=== PATIENT | male | born 1940 | race Caucasian/White ===

== ENCOUNTER 2019-09-26 14:39 | Emergency (ER) | payer OTHER ==
[~2019-09-26] VITALS: Ht 177.8 cm; Wt 99.9 kg
[~2019-09-26 14:39] MED LIST: ACET-1600 PO; ALBU0.63 NEB; AMLO10TA8 PO; B CO1TAB14 PO; BENZ200C48 PO; BUPR150T13 PO; DIGO250T3 PO; DOCU100T6 PO; FINA5TAB4 PO; FURO-93 PO; LEVO50TA PO; LEVO750T26 PO; LISI40TA PO; LORA-247 PO; METO-93 PO; METO25TA91 PO; OXCA150T18 PO; POTA20TA14 PO; PRED20TA PO; RIVA20TA PO; SIMV80TA18 PO; TAMS0.4C2 PO
[2019-09-26 14:45] VITALS: BP 95/61
--- NOTE | 2019-09-26 15:25 | NUR ---
XRAY AT BEDSIDE. PT RESTING COMFORTABLY ON GURNEY. NADN.
--- NOTE | 2019-09-26 15:51 | NUR ---
ALL RESULSTS ARE BACK AT THIS TIME. CHART UP FOR RECHECK.
== END 2019-09-26 16:28 | disposition home or self-care (01) ==
LOC: ED 15:08
DX: R05 Cough (principal); R06.02 Shortness of breath; R94.31 Abnormal electrocardiogram [ECG] [EKG]; I11.0 Hypertensive heart disease with heart failure; I50.9 Heart failure, unspecified; E03.9 Hypothyroidism, unspecified; E11.9 Type 2 diabetes mellitus without complications
CPT/HCPCS: 71045; 93005; 99283

== ENCOUNTER 2019-11-13 17:10 | Emergency (ER) | payer OTHER ==
[~2019-11-13] VITALS: Ht 177.8 cm; Wt 103.1 kg
[~2019-11-13 17:10] MED LIST changes: +METH4TAB2 PO
--- NOTE | 2019-11-13 17:53 | NUR ---
PT HAS CO 7 LB WEIGHT GAIN IN 2 DAYS, W BILATERAL 2+ PITTING EDEMA. NEW ONSET OF WHEEZING. DENIES SOB OR CP. PT NOT IN RESP DISTRESS. GOLD BLOWER APPLIED. VSS.
[2019-11-13 18:24] LABS: BASOPHILS # (AUTO) 0.05 x10^3/uL (0-0.1); BASOPHILS % (AUTO) 1 % (0-1); EOSINOPHILS # (AUTO) 0.15 x10^3/uL (0-0.4); EOSINOPHILS % (AUTO) 2 % (1-7); LYMPHOCYTES # (AUTO) 1.02 x10^3/uL (1-3.4); LYMPHOCYTES % (AUTO) 13 % (22-44); MD NO; MEAN CORPUSCULAR HEMOGLOBIN 31.4 pg (27.5-34.5); MEAN CORPUSCULAR HGB CONC 33.1 g/dL (33.2-36.2); MEAN CORPUSCULAR VOLUME 94.9 fL (81-97); MEAN PLATELET VOLUME 8.5 fL (7.4-10.4); MONOCYTES # (AUTO) 0.57 x10^3/uL (0.2-0.8); MONOCYTES % (AUTO) 7 % (2-9); NEUTROPHILS # (AUTO) 6.34 x10^3/uL (1.8-6.8); NEUTROPHILS % (AUTO) 78 % (42-75); PLATELET COUNT 336 x10^3/uL (130-400); RED BLOOD COUNT 3.97 x10^6/uL (4.38-5.82); RED CELL DISTRIBUTION WIDTH 15.7 % (9.4-14.8)
[2019-11-13 18:30] LABS: ALBUMIN 3.4 g/dL (3.4-5.0); ANION GAP 7 mmol/L (5-15); CALCIUM 8.7 mg/dL (8.5-10.1); CHLORIDE 104 mmol/L (98-107)
--- NOTE | 2019-11-13 18:30 | NUR ---
PT AT BEDSIDE. LABS PENDING.
[2019-11-13 18:35] LABS: ALANINE AMINOTRANSFERASE 28 U/L (12-78); ALKALINE PHOSPHATASE 86 U/L (45-117); BILIRUBIN,TOTAL 0.6 mg/dL (0.2-1.0); CREATININE 1.36 mg/dL (0.7-1.3); TOTAL PROTEIN 6.8 g/dL (6.4-8.2)
--- NOTE | 2019-11-13 18:50 | NUR ---
REPORT TO CHEST PAIN
--- NOTE | 2019-11-13 19:00 | NUR ---
REPORT FROM ALYSA MCQUEEN. PT SITTING UP IN [facility], AWAKE/ALERT, NAD NOTED. SO AT BEDSIDE. PT REQUESTING DC. CHART UP FOR RECHECK. PT/SO UPDATED TO POC AND DEMONSTRATES UNDERSTANDING.
--- NOTE | 2019-11-13 19:08 | NUR ---
Note undone in EDM - 11/13/19 at 1913 by NICOLASA REPORT FROM ALYSA MATTHEWS. PT RESTING IN [facility], AWAKE/ALERT/TALKATIVE WITH EASE. NAD NOTED. PT REPORTS "45-50 CHEST PAIN", ONSET THIS AM. +NAUSEA. DENIES PRODUCTIVE COUGH/FEVER/LE EDEMA OR PAIN. IV ESTABLISHED, LABS DRAWN. PT MEDICATED PER EMAR FOR PAIN. PT REFUSING MORPHINE AT THIS TIME, "MY PAIN ISN'T THAT BAD, I WILL LET YOU KNOW IF IT GETS WORSE". NITRO ADMIN'D. BP STABLE. PT CONVERSING ON PHONE WITH , EASILY DISTRACTABLE FROM CP. BP/SPO2/ECG MONITORING IN PLACE. NSR ON MONITOR. POC IS ADMIT, DISCUSSED WITH PT WHO DEMONSTRATES UNDERSTANDING.
[2019-11-13] MEDS ORDERED: FUROSEMIDE 20 MG TABLET ONE (19:18)
--- NOTE | 2019-11-13 19:25 | NUR ---
PT MEDICATED PER EMAR, K+ 3.4. PT TAKES PO K+ BID AND WILL TAKE POTASSIUM THIS EVENING. ERP AWARE. BP/SPO2/ECG MONITORING IN PLACE. NSR ON MONITOR. AWAITING DC INSTRUCTIONS.
--- NOTE | 2019-11-13 19:45 | NUR ---
DC EDUCATION PROVIDED, PT DEMONSTRATES UNDERSTANDING. PT TRANSFERED SELF FROM GURNEY TO WHEELCHAIR. WHEELED TO DC WITH RN AND SO. SO TO TRANSPORT PT HOME.
[2019-11-13 19:46] VITALS: BP 117/60
[2019-11-14] MEDS ORDERED: FUROSEMIDE 40 MG/4 ML IV SCH (09:00)
[2019-11-14] MEDS ORDERED: FUROSEMIDE 40 MG TABLET PO SCH (09:00)
[2019-11-14] MEDS ORDERED: FUROSEMIDE 20 MG TABLET PO SCH (09:00)
== END 2019-11-13 19:47 | disposition home or self-care (01) ==
LOC: ED 18:22
DX: I50.9 Heart failure, unspecified (principal); R60.0 Localized edema; I10 Essential (primary) hypertension
CPT/HCPCS: 36415; 71045; 80053; 83880; 85025; 93005; 99283